=== PATIENT | female | born 1970 | race Caucasian/White ===

== ENCOUNTER 2022-02-26 09:33 | Outpatient (CLI) | payer BC | END 2022-02-26 09:34 | disposition home or self-care (01) | LOC: CSHMAMMO 09:33 | PROVIDERS: ATTEND Family Medicine | DX: Z12.31 Encounter for screening mammogram for malignant neoplasm of breast (principal); Z91.89 Other specified personal risk factors, not elsewhere classified | CPT/HCPCS: 77063; 77067 ==

== ENCOUNTER 2023-04-05 08:56 | Outpatient (CLI) | payer BC | END 2023-04-05 08:57 | disposition home or self-care (01) | LOC: CSHMAMMO 08:56 | PROVIDERS: ATTEND Family Medicine | DX: Z12.31 Encounter for screening mammogram for malignant neoplasm of breast (principal); Z91.89 Other specified personal risk factors, not elsewhere classified | CPT/HCPCS: 77063; 77067 ==

== ENCOUNTER 2025-07-04 13:59 | Outpatient (CLI) | payer BC | END 2025-07-04 14:00 | disposition home or self-care (01) | LOC: CSHMAMMO 13:59 | PROVIDERS: ATTEND Family Medicine | DX: Z12.31 Encounter for screening mammogram for malignant neoplasm of breast (principal); Z91.89 Other specified personal risk factors, not elsewhere classified | CPT/HCPCS: 77063; 77067 ==